=== PATIENT | male | born 1970 | race Caucasian/White ===

== ENCOUNTER 2018-05-12 13:30 | Outpatient (CLI) | payer BC ==
[2018-05-12 14:15] LABS: Hemoglobin 15.1 g/dL (14.0-18.0); Mean Corpuscular HGB CONC 34.5 g/dL (32.0-36.0); Mean Corpuscular Hemoglobin 32.8 pg (27.0-31.0); Mean Corpuscular Volume 94.9 fL (78.0-98.0); Platelet Count 209 thou/uL (130-400); RBC Distribution Width 11.2 % (11.5-14.5); Red Blood Cell (RBC) Count 4.61 mill/uL (4.70-6.10); White Blood Cell (WBC) Count 6.2 thou/uL (4.8-10.8)
== END 2018-05-12 13:31 | disposition home or self-care (01) ==
LOC: LABBT 13:30
PROVIDERS: ATTEND Orthopaedic Surgery
DX: Z01.812 Encounter for preprocedural laboratory examination (principal); S46.211A Strain of muscle, fascia and tendon of other parts of biceps, right arm, initial encounter
CPT/HCPCS: 85027

== ENCOUNTER 2018-05-13 07:35 | Day surgery (SDC) | payer BC ==
[2018-05-12 13:46] VITALS: BMI 25.0
[2018-05-13] MEDS ORDERED: Midazolam HCl 2 mg/2 ml Vial ONE (08:10)
[2018-05-13] MEDS ORDERED: Fentanyl 100 MCG/2 ML VIAL ONE ×2 (08:11→10:57)
[2018-05-13] MEDS ORDERED: Clindamycin/D5W 900 mg/50 ml Premix Bag ONE (08:40)
[2018-05-13] MEDS ORDERED: Zolpidem Tartrate 5 MG TAB PO PRN (08:58)
[2018-05-13] MEDS ORDERED: Ondansetron HCl/PF 4 MG/2 ML Vial IVP PRN (08:58)
[2018-05-13] MEDS ORDERED: Promethazine HCl 25 MG/ML VIAL IM PRN (08:58)
[2018-05-13] MEDS ORDERED: Fentanyl 100 MCG/2 ML VIAL IV PRN (08:58)
[2018-05-13] MEDS ORDERED: HYDROcodone/Acetaminophen 10/325 mg Tablet PO PRN ×2 (08:58)
[2018-05-13] MEDS ORDERED: Ropivacaine HCl/PF 1,100 MG in Sodium Chloride 0.9% 440 ML NERVE BLCK SCH (08:58)
[2018-05-13] MEDS ORDERED: traMADol HCl 50 MG TAB PO PRN ×2 (08:58)
[2018-05-13] MEDS ORDERED: Lidocaine 1% (PF) 30 ML VIAL ONE (09:03)
--- NOTE | 2018-05-13 11:25 | RAD ---
RIGHT ELBOW TWO INTRAOPERATIVE FLUOROSCOPIC IMAGES: 05/13/2018 HISTORY: Right arm biceps rupture repair. FINDINGS: Two intraoperative fluoroscopic images of the right elbow are submitted for interpretation. Lucency overlies the proximal radius with overlying metallic density, related to post surgical changes. IMPRESSION: Post surgical changes, right proximal radius. Correlation with intraoperative findings is rainer buck. POS: [facility]
[2018-05-13] MEDS ORDERED: oxyCODONE/Acetaminophen 5 mg/325 mg Tablet PO SCH (12:15)
--- NOTE | 2018-05-13 12:51 | OP ---
DATE OF PROCEDURE: 05/13/2018 PREOPERATIVE DIAGNOSIS: Right distal biceps rupture. POSTOPERATIVE DIAGNOSIS: Right distal biceps rupture. PROCEDURE PERFORMED: Right distal biceps rupture repair. STAFF: Richard Torres M.D. WEIGH BOSS: Billy De La Garza PA-C. ANESTHESIA: [place]. The patient received a LMA with a supraclavicular with a catheter. ESTIMATED BLOOD LOSS: 30 mL. TOURNIQUET TIME: 45 minutes. ANTIBIOTICS: Clindamycin 900 mg. IMPLANTS: [employer] TightRope, one in, one was dropped on the back table. COMPLICATIONS: None. HISTORY OF PRESENT ILLNESS: Mr. Mark is a 47-year-old male who had a rupture of his distal bicep s. The patient was picking up a clark for the first time and felt a pop in his biceps. The patient h ad a positive hook sign. He had no palpable biceps. The patient had increased pain with supination. I discussed with the patient the risks and benefits of right distal biceps repair to include pain, scar, bleeding, infection, damage to vital structures, decreased range of motion or strength, continu ed pain despite surgical intervention. The patient understood the risks and benefits of the procedur e and elected to proceed. PROCEDURE NOTE: Time-out was performed designating the patient's right upper extremity as the operat singh site based on site, consents and markings. After completion of timeout, the patient's right uppe r extremity was prepped and draped in sterile fashion. Tourniquet was brought up and left up for a t otal of 45 minutes. Incision made down through an oblique fashion over the volar crease along the __ __ down through skin. We isolated the vein. We were able to find the aponeurosis, come down and fin d the stump of the biceps. We were able to find the aponeurosis and the tract of the biceps towards its insertion on the radial tuberosity so we created that tract. We saw the lateral nerve of the for earm which we did not cut. We dissected down the lamina through the brachialis, in between the brach ialis and the teres down to the bicipital tuberosity. We found the lesser tuberosity. We cleaned it off to ensure positioning for our pin placement, we drilled bicortical under fluoroscopic guidance a nd completed supination trying to stay within ____ as well as to get on as much of the bicipital tube rosity as possible hypersupination. We then drilled a single cortex. We had passed our FiberWire lo op through, sized to size 8 tendon and cut cleaned out the distal extent of the tendon. We then pass ed it through our created remnant tract for the biceps under the leash of Renzo and all the vessels t o ensure that it tracked in its normal position, washed out the holes to ensure any bone remnants wer e there, put our TightRope on passing for position and passed it across and pulled the tendon into p lace. Placed the patient in slight flexion about 30-40 degrees of flexion, pulled tightly, passed wi th a free needle back to the tendon our 2 FiberWire strands and tied a knot cut the sutures, washed a nd closed our fascial plane and our skin. Let the tourniquet down after 45 minutes. The patient will be in a sling. He will begin range of motion of elbow as tolerated. He will follow up with me in about 10-14 days. No weight bearing at all to his right upper extremity.
[2018-05-13] MEDS ORDERED: Bupivacaine 0.25% HCL 30 ML VIAL ONE (12:58)
[2018-05-13] MEDS ORDERED: Ropivacaine 0.5% HCl/PF (150 MG/30 ML VIAL) ONE (12:58)
[2018-05-13] MEDS ORDERED: PROPOFOL 200 MG/20 ML VIAL ONE (13:39)
[2018-05-13] MEDS ORDERED: Ketorolac Tromethamine 30 MG/ML VIAL ONE (13:39)
[2018-05-13] MEDS ORDERED: Dexamethasone 20 MG/5 ML VIAL ONE (13:39)
[2018-05-13] MEDS ORDERED: Ondansetron HCl/PF 4 MG/2 ML Vial ONE (13:39)
== END 2018-05-13 13:35 | disposition home or self-care (01) ==
LOC: SDC 07:35
PROVIDERS: ATTEND Orthopaedic Surgery
PROC: 0LQ30ZZ Repair Right Upper Arm Tendon, Open Approach (ICD-10-PCS; principal; 2018-05-13)
DX: S46.211A Strain of muscle, fascia and tendon of other parts of biceps, right arm, initial encounter (principal); K44.9 Diaphragmatic hernia without obstruction or gangrene; Z88.0 Allergy status to penicillin; Z79.899 Other long term (current) drug therapy
CPT/HCPCS: 76001; 96374; C1713; J2001; J2250; J3010; J3490; J7050

== ENCOUNTER 2018-09-29 07:35 | Outpatient (CLI) | payer BC ==
--- NOTE | 2018-09-29 10:26 | MRI ---
MRI LUMBAR SPINE WITH AND WITHOUT CONTRAST: INDICATIONS: Lumbar radiculopathy. Prior lumbar surgery in 2005. Increasing lumbar pain. COMPARISON: MRI lumbar spine, dated 09/28/2015. TECHNIQUE: Multiplanar, multisequential imaging of the lumbar spine obtained. Post contrast images were obtaine d, administering 18 mL of MultiHance IV. FINDINGS: The lumbar vertebrae maintain height. Degenerative disk endplate change at L5-S1 again noted. There is loss of disk height at L5-S1. Endplate signal changes at this level are again noted and appear s table from 2015. There is a slight posterior listhesis at L5-S1, which is stable. Posterior laminec amelie changes on the left at L5-S1 again noted. There is a broad-based bulge associated with this sli ght posterior listhesis, which flattens the anterior thecal sac. This slightly displaces the elsi ing left S1 nerve root. The diffuse bulge exhibits bilateral foraminal encroachment, slightly more p rominent on the right. Disk osteophyte complex projects laterally to the right at this level. There is evidence of contact with both exiting L5 nerve roots. There is facet arthrosis. The findings at this level do not appear significantly changed when compared to 2014. At L4-L5, there is a mild diffuse disk bulge flattening the anterior thecal sac. Facet arthrosis and hypertrophy result in very mild central canal stenosis, which appears stable. There is an annular f issure seen laterally, to the right, with a diffuse disk bulge encroaching into both foramina, slight ly more prominent on the right, associated with this annular tear. This does appear to contact the e xiting right L4 nerve root, within the foramina, best appreciated on sagittal imaging. At L3-L4, mild broad-based bulge. Mild to moderate facet and ligamentous hypertrophy. Posterior epi dural fat. Mild central canal stenosis, which is stable. At L2-L3, minimal disk bulge. Mild to moderate facet hypertrophy. Very mild central canal stenosis, unchanged. At L1-L2, minimal disk bulge. Mild facet arthrosis. No central canal or foraminal stenosis. IMPRESSION: The lumbar spine findings appear stable from 2014. Findings are most pronounced at the L4-L5 and the L5-S1 levels, as described above. POS: [facility]
[2018-09-29] MEDS ORDERED: Magnevist 469MG/ML 20 ML VIAL ONE (10:53)
== END 2018-09-29 07:36 | disposition home or self-care (01) ==
LOC: BICMRI 07:35
PROVIDERS: ATTEND Family Medicine
DX: M51.16 Intervertebral disc disorders with radiculopathy, lumbar region (principal); M48.061 Spinal stenosis, lumbar region without neurogenic claudication; M47.26 Other spondylosis with radiculopathy, lumbar region; M43.17 Spondylolisthesis, lumbosacral region; M51.17 Intervertebral disc disorders with radiculopathy, lumbosacral region; M47.27 Other spondylosis with radiculopathy, lumbosacral region; Z98.890 Other specified postprocedural states
CPT/HCPCS: 72158; A9579

== ENCOUNTER 2020-12-15 17:30 | Inpatient (IN) | payer BC ==
[2020-12-15] MEDS ORDERED: Acetaminophen 325 MG TAB PO PRN (19:32)
[2020-12-15] MEDS ORDERED: Guaifenesin DM 100-10/5 ML UDCUP PO PRN (19:32)
[2020-12-15] MEDS ORDERED: Ondansetron ODT 4 MG TAB PO PRN (19:32)
[2020-12-15] MEDS: Melatonin 3 MG TAB PO SCH (20:53)
[2020-12-16 00:40] VITALS: BMI 25.6
[2020-12-16 06:08] LABS: #Lymphocytes 0.7 thou/uL (1.20-3.40); #Monocytes 0.6 thou/uL (0.11-0.59); #Neutrophils 2.7 thou/uL (1.40-6.50); %Basophils 0.5 % (0.0-1.0); %Eosinophils 0.2 % (0.0-10.0); %Lymphocytes 17.1 % (21.0-51.0); %Monocytes 14.8 % (0.0-10.0); %Neutrophils 67.4 % (42.0-75.0); Hemoglobin 15.1 g/dL (14.0-18.0); Mean Corpuscular HGB CONC 34.3 g/dL (32.0-36.0); Mean Corpuscular Hemoglobin 31.9 pg (27.0-31.0); Mean Corpuscular Volume 92.9 fL (78.0-98.0); Mean Platelet Volume 7.7 fL (7.4-10.4); Platelet Count 148 thou/uL (130-400); RBC Distribution Width 11.2 % (11.5-14.5); Red Blood Cell (RBC) Count 4.75 mill/uL (4.70-6.10)
[2020-12-16 06:53] LABS: Calcium 8.1 mg/dL (7.8-10.44); Chloride 105 mmol/L (98-107); Potassium 4.1 mmol/L (3.5-5.1); Sodium 139 mmol/L (136-145)
[2020-12-16 06:54] LABS: Glucose 143 mg/dL (70-105)
[2020-12-16 06:55] LABS: Anion Gap 16 mmol/L (10-20); Carbon Dioxide 22 mmol/L (22-29)
[2020-12-16 06:57] LABS: Calc. Creatinine Clearance 144 mL/min (70-130)
[2020-12-16 06:58] LABS: BUN (Urea Nitrogen) 11 mg/dL (8.4-25.7)
[2020-12-16] MEDS: Cholecalciferol 1,000 UNITS (25 MCG) TAB PO SCH (07:45)
[2020-12-16] MEDS: Ascorbic Acid 500 mg Chewable Tablet PO SCH (07:46)
[2020-12-16] MEDS: Zinc Sulfate 220 MG CAP PO SCH (07:46)
[2020-12-16] MEDS: Dexamethasone 4 mg/ml Vial SLOW IVP SCH (07:46)
[2020-12-16] MEDS: Enoxaparin Sodium 40 MG/0.4 ML SYRINGE SC SCH (07:47)
[2020-12-16] MEDS ORDERED: REMDESIVIR (EUA) 200 MG in Sodium Chloride 0.9% 250 ML 210 ML IV SCH (10:00)
[2020-12-16] MEDS ORDERED: Albuterol 200 PUFF (6.7GM INHALER) INH PRN (16:47)
[2020-12-16] MEDS: Melatonin 3 MG TAB PO SCH (21:06)
[2020-12-17 06:23] LABS: #Lymphocytes 0.9 thou/uL (1.20-3.40); #Monocytes 0.9 thou/uL (0.11-0.59); %Basophils 0.2 % (0.0-1.0); %Eosinophils 0.2 % (0.0-10.0); %Lymphocytes 12.7 % (21.0-51.0); %Monocytes 12.6 % (0.0-10.0); %Neutrophils 74.2 % (42.0-75.0); Hemoglobin 14.4 g/dL (14.0-18.0); Mean Corpuscular HGB CONC 33.5 g/dL (32.0-36.0); Mean Corpuscular Hemoglobin 31.8 pg (27.0-31.0); Mean Corpuscular Volume 94.9 fL (78.0-98.0); Mean Platelet Volume 7.6 fL (7.4-10.4); Platelet Count 178 thou/uL (130-400); RBC Distribution Width 11.3 % (11.5-14.5); Red Blood Cell (RBC) Count 4.54 mill/uL (4.70-6.10); White Blood Cell (WBC) Count 6.7 thou/uL (4.8-10.8)
[2020-12-17 06:51] LABS: ALT (SGPT) 90 U/L (8-55); AST (SGOT) 116 U/L (5-34); Albumin 3.3 g/dL (3.5-5.0); Alkaline Phosphatase 75 U/L (40-110); Anion Gap 13 mmol/L (10-20); BUN (Urea Nitrogen) 20 mg/dL (8.4-25.7); Bilirubin, Direct 0.3 mg/dL (0.1-0.3); Bilirubin, Total 0.5 mg/dL (0.2-1.2); Calc. Creatinine Clearance 135 mL/min (70-130); Calcium 7.9 mg/dL (7.8-10.44); Carbon Dioxide 24 mmol/L (22-29); Chloride 107 mmol/L (98-107); Glucose 124 mg/dL (70-105); Protein, Total 5.8 g/dL (6.0-8.3); Sodium 140 mmol/L (136-145)
[2020-12-17] MEDS: Cholecalciferol 1,000 UNITS (25 MCG) TAB PO SCH (08:23)
[2020-12-17] MEDS: Ascorbic Acid 500 mg Chewable Tablet PO SCH (08:23)
[2020-12-17] MEDS: Dexamethasone 4 mg/ml Vial SLOW IVP SCH (08:23)
[2020-12-17] MEDS: Enoxaparin Sodium 40 MG/0.4 ML SYRINGE SC SCH (08:23)
[2020-12-17] MEDS: Zinc Sulfate 220 MG CAP PO SCH (08:23)
[2020-12-17] MEDS ORDERED: Ivermectin 3 MG TAB PO SCH ×2 (09:00→12:45)
[2020-12-17] MEDS: REMDESIVIR (EUA) 100 MG in Sodium Chloride 0.9% 250 ML 230 ML IV SCH (11:00)
[2020-12-17] MEDS: Melatonin 3 MG TAB PO SCH (20:52)
[2020-12-17] MEDS: Benzonatate 100 MG CAP PO PRN (20:52)
[2020-12-18 06:36] LABS: #Monocytes 0.7 thou/uL (0.11-0.59); #Neutrophils 4.8 thou/uL (1.40-6.50); %Basophils 0.6 % (0.0-1.0); %Eosinophils 0.1 % (0.0-10.0); %Lymphocytes 15.7 % (21.0-51.0); %Neutrophils 72.5 % (42.0-75.0); Hemoglobin 15.6 g/dL (14.0-18.0); Mean Corpuscular HGB CONC 33.1 g/dL (32.0-36.0); Mean Corpuscular Hemoglobin 31.3 pg (27.0-31.0); Mean Corpuscular Volume 94.6 fL (78.0-98.0); Mean Platelet Volume 7.1 fL (7.4-10.4); Platelet Count 183 thou/uL (130-400); RBC Distribution Width 11.4 % (11.5-14.5); Red Blood Cell (RBC) Count 4.97 mill/uL (4.70-6.10); White Blood Cell (WBC) Count 6.6 thou/uL (4.8-10.8)
[2020-12-18 07:07] LABS: ALT (SGPT) 91 U/L (8-55); AST (SGOT) 68 U/L (5-34); Albumin 3.1 g/dL (3.5-5.0); Alkaline Phosphatase 87 U/L (40-110); Anion Gap 14 mmol/L (10-20); BUN (Urea Nitrogen) 20 mg/dL (8.4-25.7); Bilirubin, Direct 0.3 mg/dL (0.1-0.3); Bilirubin, Total 0.6 mg/dL (0.2-1.2); Calc. Creatinine Clearance 147 mL/min (70-130); Calcium 7.6 mg/dL (7.8-10.44); Carbon Dioxide 21 mmol/L (22-29); Chloride 105 mmol/L (98-107); Glucose 102 mg/dL (70-105); Potassium 4.1 mmol/L (3.5-5.1); Protein, Total 5.7 g/dL (6.0-8.3); Sodium 136 mmol/L (136-145)
[2020-12-18] MEDS: Ivermectin 3 MG TAB PO SCH (08:08)
[2020-12-18] MEDS: Enoxaparin Sodium 40 MG/0.4 ML SYRINGE SC SCH (08:09)
[2020-12-18] MEDS: Zinc Sulfate 220 MG CAP PO SCH (08:09)
[2020-12-18] MEDS: Cholecalciferol 1,000 UNITS (25 MCG) TAB PO SCH (08:09)
[2020-12-18] MEDS: Ascorbic Acid 500 mg Chewable Tablet PO SCH (08:09)
[2020-12-18] MEDS: Dexamethasone 4 mg/ml Vial SLOW IVP SCH (08:10)
[2020-12-18] MEDS: REMDESIVIR (EUA) 100 MG in Sodium Chloride 0.9% 250 ML 230 ML IV SCH (09:41)
[2020-12-18] MEDS: Melatonin 3 MG TAB PO SCH (20:11)
[2020-12-18] MEDS: Benzonatate 100 MG CAP PO PRN (20:11)
[2020-12-19 07:53] LABS: Hemoglobin 15.4 g/dL (14.0-18.0); Mean Corpuscular HGB CONC 31.3 g/dL (32.0-36.0); Mean Corpuscular Volume 95.9 fL (78.0-98.0); Mean Platelet Volume 7.5 fL (7.4-10.4); Platelet Count 236 thou/uL (130-400); RBC Distribution Width 11.2 % (11.5-14.5); Red Blood Cell (RBC) Count 5.15 mill/uL (4.70-6.10); White Blood Cell (WBC) Count 6.2 thou/uL (4.8-10.8)
[2020-12-19] MEDS: Cholecalciferol 1,000 UNITS (25 MCG) TAB PO SCH (08:21)
[2020-12-19] MEDS: Ascorbic Acid 500 mg Chewable Tablet PO SCH (08:22)
[2020-12-19] MEDS: Enoxaparin Sodium 40 MG/0.4 ML SYRINGE SC SCH (08:22)
[2020-12-19] MEDS: Zinc Sulfate 220 MG CAP PO SCH (08:22)
[2020-12-19] MEDS: Ivermectin 3 MG TAB PO SCH (08:22)
[2020-12-19] MEDS: Dexamethasone 4 mg/ml Vial SLOW IVP SCH (08:23)
[2020-12-19 09:27] LABS: Band 5 % (5-11); Lymphocytes 14 % (21-51); MDiff Complete? YES; Monocytes 8 % (0-10); Neutrophil 72 % (42-75); RBC Morphology Normal; Reactive Lymphocytes 1 % (0-10)
[2020-12-19] MEDS: REMDESIVIR (EUA) 100 MG in Sodium Chloride 0.9% 250 ML 230 ML IV SCH (09:28)
[2020-12-19 10:48] LABS: Anion Gap 12 mmol/L (10-20); BUN (Urea Nitrogen) 20 mg/dL (8.4-25.7); Calc. Creatinine Clearance 137 mL/min (70-130); Calcium 7.7 mg/dL (7.8-10.44); Carbon Dioxide 23 mmol/L (22-29); Chloride 105 mmol/L (98-107); Glucose 184 mg/dL (70-105); Potassium 3.7 mmol/L (3.5-5.1); Sodium 136 mmol/L (136-145)
[2020-12-19 18:58] LABS: Albumin 3.3 g/dL (3.5-5.0)
[2020-12-19 18:59] LABS: Calcium 8.1 mg/dL (7.8-10.44); Chloride 106 mmol/L (98-107); Potassium 4.3 mmol/L (3.5-5.1); Sodium 136 mmol/L (136-145)
[2020-12-19 19:00] LABS: Glucose 169 mg/dL (70-105); Protein, Total 5.9 g/dL (6.0-8.3)
[2020-12-19 19:02] LABS: Anion Gap 14 mmol/L (10-20); Bilirubin, Total 0.5 mg/dL (0.2-1.2); Carbon Dioxide 20 mmol/L (22-29)
[2020-12-19 19:03] LABS: Alkaline Phosphatase 91 U/L (40-110); Calc. Creatinine Clearance 147 mL/min (70-130)
[2020-12-19 19:04] LABS: BUN (Urea Nitrogen) 19 mg/dL (8.4-25.7)
[2020-12-19 19:05] LABS: AST (SGOT) 31 U/L (5-34); Bilirubin, Direct 0.3 mg/dL (0.1-0.3)
[2020-12-19 19:06] LABS: ALT (SGPT) 65 U/L (8-55)
[2020-12-19] MEDS: Melatonin 3 MG TAB PO SCH (20:42)
[2020-12-20 07:16] LABS: Anion Gap 11 mmol/L (10-20); BUN (Urea Nitrogen) 22 mg/dL (8.4-25.7); CRP (Inflammatory) Less than 0.50 mg/dL (= or < 0.5); Calc. Creatinine Clearance 153 mL/min (70-130); Calcium 7.6 mg/dL (7.8-10.44); Carbon Dioxide 24 mmol/L (22-29); Chloride 106 mmol/L (98-107); Glucose 124 mg/dL (70-105); Sodium 137 mmol/L (136-145)
[2020-12-20 07:27] LABS: #Monocytes 1.1 thou/uL (0.11-0.59); #Neutrophils 5.8 thou/uL (1.40-6.50); %Basophils 0.5 % (0.0-1.0); %Eosinophils 0.1 % (0.0-10.0); %Lymphocytes 12.1 % (21.0-51.0); %Neutrophils 73.3 % (42.0-75.0); Hemoglobin 14.7 g/dL (14.0-18.0); Mean Corpuscular HGB CONC 32.9 g/dL (32.0-36.0); Mean Corpuscular Hemoglobin 31.5 pg (27.0-31.0); Mean Corpuscular Volume 95.7 fL (78.0-98.0); Mean Platelet Volume 7.5 fL (7.4-10.4); Platelet Count 271 thou/uL (130-400); RBC Distribution Width 11.3 % (11.5-14.5); Red Blood Cell (RBC) Count 4.66 mill/uL (4.70-6.10)
[2020-12-20] MEDS: Ascorbic Acid 500 mg Chewable Tablet PO SCH (08:32)
[2020-12-20] MEDS: Enoxaparin Sodium 40 MG/0.4 ML SYRINGE SC SCH (08:35)
[2020-12-20] MEDS: Cholecalciferol 1,000 UNITS (25 MCG) TAB PO SCH (08:35)
[2020-12-20] MEDS: Zinc Sulfate 220 MG CAP PO SCH (08:35)
[2020-12-20] MEDS: Ivermectin 3 MG TAB PO SCH (08:36)
[2020-12-20] MEDS ORDERED: Dexamethasone 4 mg/ml Vial ONE (08:39)
[2020-12-20] MEDS: Dexamethasone 4 mg/ml Vial SLOW IVP SCH (08:40)
[2020-12-20] MEDS: REMDESIVIR (EUA) 100 MG in Sodium Chloride 0.9% 250 ML 230 ML IV SCH (09:45)
[2020-12-20 13:17] VITALS: BP 125/80; TEMP 98.2
== END 2020-12-20 13:20 | disposition home or self-care (01) | DRG 177 ==
LOC: T4-B 19:24
PROVIDERS: ADMIT Internal Medicine; ATTEND Internal Medicine
PROC: 8E0ZXY6 Isolation (ICD-10-PCS; principal; 2020-12-15)
PROC: XW033E5 Introduction of Remdesivir Anti-infective into Peripheral Vein, Percutaneous Approach, New Technology Group 5 (ICD-10-PCS; 2020-12-15)
DX: U07.1 COVID-19 (principal); J12.82 Pneumonia due to coronavirus disease 2019; J96.01 Acute respiratory failure with hypoxia; E86.0 Dehydration; Z88.0 Allergy status to penicillin
CPT/HCPCS: 36415; 80048; 80076; 82728; 85025; 85379; 86140; J1100; J1650; J7050

== ENCOUNTER 2021-10-22 16:42 | Outpatient (CLI) | payer BC | END 2021-10-22 16:43 | disposition home or self-care (01) | LOC: SCSRAD 16:42 | PROVIDERS: ATTEND Family Medicine | DX: J18.9 Pneumonia, unspecified organism (principal) | CPT/HCPCS: 71046 ==